=== PATIENT | male | born 2000 | race Two or more races ===

== ENCOUNTER 2023-12-04 18:51 | Emergency (ER) | payer OTHER ==
[~2023-12-04] VITALS: Ht 175.3 cm; Wt 74.9 kg
[2023-12-04 19:30] VITALS: BP 124/83; PULSE 66; RESP 16; TEMP 97.1; O2SAT 97
[2023-12-04] MEDS ORDERED: CYCL-837 PO (23:32)
[2023-12-04] MEDS ORDERED: IBUP1TAB4 PO (23:32)
[2023-12-04] MEDS: CYCLOBENZAPRINE HCL 10 MG TAB PO ONE (23:45)
[2023-12-04] MEDS: KETOROLAC TROMETH 30 MG/ML 1ML VIAL IM ONE (23:46)
== END 2023-12-04 23:52 | disposition home or self-care (01) ==
LOC: ER 18:51
DX: S29.012A Strain of muscle and tendon of back wall of thorax, initial encounter (principal); X50.0XXA Overexertion from strenuous movement or load, initial encounter; Y93.89 Activity, other specified; Y92.69 Other specified industrial and construction area as the place of occurrence of the external cause; Y99.8 Other external cause status
CPT/HCPCS: 96372; 99283; J1885